=== PATIENT | male | born 1990 | race Two or more races ===

== ENCOUNTER 2023-04-01 05:19 | Emergency (ER) | payer SELFPAY ==
[~2023-04-01] VITALS: Ht 165.1 cm; Wt 70.0 kg
[2023-04-01 05:44] VITALS: BP 114/76; PULSE 128; RESP 20; O2SAT 98
[2023-04-01 06:06] LABS: Basophils # (auto) 0 10 ^3/uL (0-0.2); Basophils % (auto) 0.4 % (0.0-2.0); Eosinophils # (auto) 0.1 10 ^3/uL (0-0.8); Eosinophils % (auto) 0.7 % (0.0-7.0); Hematocrit 49.1 % (41.0-53.0); Lymphocytes % (auto) 9.4 % (10.0-50.0); Mean Corpuscular Hemoglobin 28.9 pg (28.0-32.0); Mean Corpuscular Hgb Conc. 32.6 g/dL (32.0-36.0); Mean Corpuscular Volume 88.7 fL (80.0-100.0); Monocytes # (auto) 0.6 10 ^3/uL (0-1.3); Monocytes % (auto) 5.4 % (0.0-12.0); Neutrophils # (auto) 8.6 10 ^3/uL (1.6-8.6); Neutrophils % (auto) 84.1 % (37.0-80.0); Nucleated Red Blood Cells % 0.1 %; Red Blood Cells 5.53 10^6/uL (4.5-5.90); White Blood Cell 10.3 10^3/uL (4.4-10.8)
[2023-04-01 06:32] LABS: Alanine Aminotransferase 28 U/L (7-40); Albumin 4.9 g/dL (3.2-4.8); Alkaline Phosphatase 75 U/L (46-116); Anion Gap 21 (5-15); Aspartate Aminotransferase 39 U/L (13-40); BUN/Creatinine Ratio 4.6 (10.0-20.0); Bilirubin, Total 1.6 mg/dL (0.2-1.0); Blood Alcohol < 3.0 mg/dL (<10); Blood Urea Nitrogen 7 mg/dL (9-23); Calcium 9.5 mg/dL (8.7-10.4); Carbon Dioxide 13 mmol/L (20-30); Chloride 98 mmol/L (98-107); Glucose 214 mg/dL (74-106); Potassium 2.9 mmol/L (3.5-5.1); Sodium 132 mmol/L (136-145); Total Protein 8.1 g/dL (5.7-8.2)
[2023-04-01 06:39] LABS: Acetaminophen < 2.0 UG/ML (10.0-20.0)
[2023-04-01 07:09] LABS: Creatine Kinase IFCC 593 U/L (46-171)
[2023-04-01 07:11] LABS: Salicylate < 3.0 mg/dL (2.8-20.0)
[2023-04-01] MEDS ORDERED: SODIUM CHLORIDE 0.9% 1,000 ML IV ONE ×3 (07:15→08:00)
[2023-04-01 07:38] LABS: Lactic Acid w/Reflex 6.4 mmol/L (0.4-2.0)
== END 2023-04-01 18:29 | disposition left against medical advice (07) ==
LOC: ER 05:19 → EDBD 05:19 → ER 18:29
DX: F25.9 Schizoaffective disorder, unspecified (principal); R07.89 Other chest pain; F12.10 Cannabis abuse, uncomplicated
CPT/HCPCS: 36415; 80053; 80320; 80329; 82550; 83605; 85025; 93005; 96360; 99284; J7030